=== PATIENT | female | born 1980 | race Two or more races ===

== ENCOUNTER 2022-07-13 15:56 | Inpatient (IN) | payer OTHER ==
[~2022-07-13] VITALS: Ht 170.2 cm; Wt 66.7 kg
[2022-07-14] MEDS ORDERED: NORVASC10 MG PO (13:43)
[2022-07-14] MEDS ORDERED: COZAAR100 MG PO (13:43)
[2022-07-14] MEDS ORDERED: BACLOFEN20 MG PO (13:44)
[2022-07-14] MEDS ORDERED: CHILDREN'S ASPI81 MG PO (13:44)
[2022-07-14] MEDS ORDERED: AMBIEN10 MG PO (13:44)
[2022-07-14] MEDS ORDERED: UBRELVY100 MG PO (13:45)
[2022-07-14] MEDS ORDERED: AIMOVIG AU140 MG/1 M (13:45)
[2022-07-14] MEDS ORDERED: EFFEXOR XR37.5 MG PO (13:46)
[2022-07-14] MEDS ORDERED: ELAVIL PO (13:46)
[2022-07-14] MEDS ORDERED: PEPCID AC20 MG PO (13:47)
[2022-07-21] MEDS ORDERED: CLOPIDOGREL BIS75 MG (15:45)
[2022-07-21] MEDS ORDERED: AMITRIPTYLINE150 MG (15:45)
[2022-07-21] MEDS ORDERED: HYDROXYCHLOROQ200 MG (15:45)
[2022-07-21] MEDS ORDERED: CLONAZEPAM1 MG (15:45)
[2022-07-21] MEDS ORDERED: OMEPRAZOLE20 MG (15:46)
[2022-07-21] MEDS ORDERED: METOPROLOL SUCC50 MG (15:46)
[2022-07-21] MEDS ORDERED: PREGABALIN150 MG (15:46)
== END 2022-07-22 10:07 | disposition home or self-care (01) | DRG 743 ==
LOC: O/R 07-21 05:30 → SURG 07-21 07:00 → O/R 07-21 08:45 → OB/GYN 07-21 10:23 → SURG 07-21 10:45 → OB/GYN 07-22 10:07
PROVIDERS: ADMIT Obstetrics & Gynecology Gynecologic Oncology; ATTEND Obstetrics & Gynecology Gynecologic Oncology
PROC: 0UT74ZZ Resection of Bilateral Fallopian Tubes, Percutaneous Endoscopic Approach (ICD-10-PCS; 2022-07-21)
PROC: 0UT94ZZ Resection of Uterus, Percutaneous Endoscopic Approach (ICD-10-PCS; principal; 2022-07-21 07:00)
DX: N85.01 Benign endometrial hyperplasia (principal); Z20.822 Contact with and (suspected) exposure to COVID-19